=== PATIENT | male | born 1950 | race Caucasian/White ===

== ENCOUNTER 2023-03-23 08:18 | Inpatient (IN) ==
--- NOTE | 2023-03-14 12:58 | Anesthesiology Consultation ---
Date of Service March 14, 2023 Assessment & Plan (1) Encounter for pre-operative examination: - check BSG am DOS. - awaiting surgeon ordered medical clearance. 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 Chart Review Chart Review: Pending: Refer to Additional Notes / Consult section and Patient NOT seen in Pre Admission Testing History Surgery Operation Date: 03/23/23 12:25 Proposed Procedures p L3-L5 Decompression and Fusion with Spinal Cord Monitoring - Praveen Huerta DO Height/Weight Height: 5 ft 8 in Weight: 107.955 kg Allergies Allergy/AdvReac Type Severity Reaction Status Date / Time No Known Allergies Allergy Verified 03/14/23 12:28 Medications Home Medications Medication Instructions Recorded Confirmed Last Taken amlodipine 5 mg tablet 5 mg PO QAM 03/14/23 03/14/23 Unknown glimepiride 2 mg tablet 2 mg PO BID 03/14/23 03/14/23 Unknown hydrocodone 5 mg-acetaminophen 325 1 tab PO Q6H PRN Pain 03/14/23 03/14/23 Unknown mg tablet losartan 100 mg tablet 100 mg PO BID 03/14/23 03/14/23 Unknown metformin 1,000 mg tablet 1,000 mg PO QAM 03/14/23 03/14/23 Unknown rosuvastatin 5 mg tablet 5 mg PO HS 03/14/23 03/14/23 Unknown semaglutide 3 mg tablet (Rybelsus) 3 mg PO QAM 03/14/23 03/14/23 Unknown tramadol 50 mg tablet 50 mg PO BID PRN Pain 03/14/23 03/14/23 Unknown Past Medical History Medical History (Updated 03/14/23 @ 12:56 by Leslye Falcon PA-C) Back pain Diabetes NIDDM History of COVID-19 03/2022 no hosp; resolved HTN (hypertension) Hyperlipidemia OBED (obstructive sleep apnea) noncompliant w/ device Past Family History Family History Other No family history of adverse response to anesthesia Past Surgical History Surgical History History of knee replacement procedure of right knee Hx of colonoscopy Hx of umbilical hernia repair Social History Smoking Status: Former smoker Do You Dip or Chew Tobacco: No Smoking End Date: quit > 40 yrs ago Hx Alcohol Use: Yes (1 beer a day) Alcohol type: beer alcohol intake frequency: 0-2 drinks per day Hx Substance Use: No substance use type: does not use Testing Electrocardiogram Date: 03/07/23 NSR, rate 81 bpm Chest X-Ray Date: 03/07/23 No acute chest disease
[~2023-03-23 08:18] MED LIST: ACETAMINOPHEN 500 MG TAB PO SCH; CeleBREX 200 MG CAP PO SCH; GABAPENTIN 300 MG CAP PO SCH; LR 15ML/HR IV SCH; LR 60ML/HR IV SCH; ceFAZolin 2000MG 2,000 MG/15 ML SYR IV SCH
[2023-03-23] MEDS ORDERED: LIDOCAINE 2% 2 ML VIAL/AMP(20MG/ML) INFIL ONE (08:31)
[2023-03-23] MEDS ORDERED: PROPOFOL IV EMULSION 10 MG/ML 20 ML VIAL IV ONE ×4 (08:31→09:28)
[2023-03-23] MEDS ORDERED: MIDAZOLAM HCL 1 MG/ML 2ML VIAL ONE (08:31)
[2023-03-23] MEDS ORDERED: ROCURONIUM BROMIDE 10 MG/ML 5 ML VIAL IV ONE (08:31)
[2023-03-23] MEDS ORDERED: ONDANSETRON INJ 2 MG/ML 2 ML VIAL ONE (08:31)
[2023-03-23] MEDS ORDERED: fentaNYL citrate PF 100 MCG/2 ML VIAL ONE ×2 (08:31→10:51)
[2023-03-23] MEDS ORDERED: DEXAMETHASONE SOD INJ 4 MG/ML VIAL ONE (08:31)
[2023-03-23] MEDS ORDERED: ATROPINE SULFATE 0.1 MG/ML 10ML SYR IV PRN (09:36)
[2023-03-23] MEDS ORDERED: ePHEDrine sulfate 50 MG/ML AMP IV PRN (09:36)
[2023-03-23] MEDS ORDERED: ePHEDrine sulfate 50 MG/5 ML SYR ONE (09:36)
[2023-03-23] MEDS ORDERED: ONDANSETRON INJ 2 MG/ML 2 ML VIAL IV PRN ×2 (09:36→15:22)
--- NOTE | 2023-03-23 09:55 | History & Physical Bridge Note ---
Date of Service March 23, 2023 History & Physical Bridge Note I have examined the patient, reviewed the History & Physical and in the interval since the performance of the History & Physical I have noted the following changes of clinical significance: no changes noted
--- NOTE | 2023-03-23 09:56 | History & Physical Report ---
Date of Service March 23, 2023 Assessment & Plan (1) Neurogenic claudication due to lumbar spinal stenosis: Plan: L3 L5 decompression and fusion History of Present Illness Chief Complaint: Back and bilateral leg pain Primary Care Provider: Praveen Madrigal DO This is a 72-year-old male presents with chronic persistent back and bilateral leg pain after failing course of nonoperative care is here for surgical invention. Allergies Allergy/AdvReac Type Severity Reaction Status Date / Time No Known Allergies Allergy Verified 03/23/23 09:00 Home Medications Medication Instructions Recorded Confirmed Type amlodipine 5 mg tablet 5 mg PO QAM 03/14/23 03/23/23 History glimepiride 2 mg tablet 2 mg PO BID 03/14/23 03/23/23 History hydrocodone 5 mg-acetaminophen 325 1 tab PO Q6H PRN Pain 03/14/23 03/23/23 History mg tablet losartan 100 mg tablet 100 mg PO BID 03/14/23 03/23/23 History metformin 1,000 mg tablet 1,000 mg PO QAM 03/14/23 03/23/23 History rosuvastatin 5 mg tablet 5 mg PO HS 03/14/23 03/23/23 History semaglutide 3 mg tablet (Rybelsus) 3 mg PO QAM 03/14/23 03/23/23 History tramadol 50 mg tablet 50 mg PO BID PRN Pain 03/14/23 03/23/23 History Past Med/Surg History Medical History (Updated 03/23/23 @ 09:55 by Praveen Huerta DO) History of COVID-19 03/2022 no hosp; resolved Back pain Diabetes NIDDM HTN (hypertension) Hyperlipidemia OBED (obstructive sleep apnea) noncompliant w/ device Surgical History Hx of umbilical hernia repair Hx of colonoscopy History of knee replacement procedure of right knee Family History Other No family history of adverse response to anesthesia Social History Smoking Status: Former smoker Tobacco Type: Cigarettes Smoking End Date: quit > 40 yrs ago; Second Hand Exposure: No; Do You Dip or Chew Tobacco: No; Tobacco Cessation Education Requested by Patient: No Hx Alcohol Use: Yes (1 beer a day) Alcohol type: beer Hx Substance Use: No Preferred Language: [place]er Communication Ability: Effective Tour Driver Required: No Beliefs That Will Affect Care: None Current Living Situation: Spouse Other Information That Helps Us Care for You: No Feels Safe at Home: Yes Safety Concerns: Feels Safe At This Time Assistive Devices: None Physical Exam Physical Exam: Patient is alert and oriented Heart regular rhythm Lungs clear Results & Data Results & Data Vital Signs (Past 12 Hours) Vital Signs Temp Pulse Resp BP Pulse Ox O2 Del Method 03/23/23 08:56 36.7 C 79 20 138/83 96 Room Air
[2023-03-23] MEDS ORDERED: ceFAZolin 330 MG/ML 1 GM VIAL ONE (10:16)
[2023-03-23] MEDS ORDERED: BUPIVACAINE/EPINEPHRINE 0.25% 1:200,000 30 ML VIAL ONE (10:16)
[2023-03-23] MEDS ORDERED: FLOSEAL HEMOSTATIC MATRIX 10ML TOP ONE (11:23)
[2023-03-23] MEDS ORDERED: HYDROmorphone INJ 2 MG/ML SYR/VIAL ONE (11:25)
[2023-03-23] MEDS ORDERED: SUGAMMADEX SODIUM 200 MG/2 ML VIAL IV ONE (12:22)
--- NOTE | 2023-03-23 12:43 | Operative Report ---
Post Operative Report Pre & Post Diagnosis Operation Date: 03/23/23 10:05 Pre-Op Diagnosis: Spinal Stenosis, Lumbar Region with Neurogenic Claudication Post-Op Diagnosis: Spinal Stenosis, Lumbar Region with Neurogenic Claudication I identified the patient and participated in the time-out.: Yes Procedure Operation Date: 03/23/23 10:05 Actual Procedures #1 lumbar decompression bilaterally facetectomies and foraminotomies L2-L3, L3- L4 and L4-5. #2 posterior spinal fusion L3-L5. #3 posterior instrumentation L3-L5. #4 interbody fusion L3-L4 L4-5 and #5 placement of 11 x 26 mm Spira cage at L3-L4 and 12 x 26 mm prior cage at L4-L5. 6 placement locally harvested morselized autograft posterior gutters. #7 placement I factor in the interbody space and infuse collagen sponge, mass graft in the posterior lateral gutters. Surgeon Praveen Huerta, Inventory Associate Evan Berrios Estimated Blood Loss 350 Findings See Below Specimens None Indications This is a 72-year-old male who presents above-mentioned diagnosis of failed course of nonoperative care is here for surgical invention. Description of Procedure Patient met with preoperatively Case discussed all questions addressed with the plan patient was taken back to operative suite underwent and patient placed in a prone position inject table top of the Jordy frame. All bony promises well- padded eyes inspected to ensure no external pressure placed upon the. This point lumbar spine was prepped and draped in a sterile fashion. Sharp dissection with the assistance of Bovie cautery was performed down to and exposing the lamina and transverse processes of L3 L4-5 bilaterally. From caudal cephalad fashion complete laminectomy of L4 L3 and L2 was performed including bilateral medial facetectomies and foraminotomies addressing severe spinal stenosis. Pedicle screws were then placed at L3 L4-5 bilaterally with assistance of fluoroscopy and appropriate size bryan placed. By way of a trans foraminal approach on the left complete discectomy of L4-L5 was performed endplates guarded to subcortical bleeding bone a 12 x 26 mm Spira cage with I factor tapped in position. Then proceeded to L3-L4 and again by way of a transforaminal approach on the left complete discectomy performed endplates guarded to subcortical bleeding bone and 11 x 26 mm Spira cage with I factor tapped in position. The rods and locked in final position bilaterally. The transverse processes of L3 L4-5 burred to subcortical bone. Infuse collagen sponge combined master graft locally harvested morselized autograft placed in the posterior gutters. 15 round SANDY drain inserted. The incision was then closed with 1 Vicryl to fascia 2-0 Vicryl subcutaneously and 4 Monocryl for final skin closure. Steri-Strips sterile dressings placed. Patient waken taken to PACU stable condition. Please note spinal cord monitoring was utilized at the procedure no changes noted. Lastly Evan Berrios was present throughout the entire surgeon while the patient positioning complex portion of the surgery and final skin closure. I attest to the content of the Intraoperative Record and any orders documented therein. Any exceptions are noted below.
[2023-03-23] MEDS: fentaNYL citrate PF 100 MCG/2 ML VIAL IV PRN ×2 (13:16→13:21)
[2023-03-23] MEDS: HYDROmorphone INJ 1 MG/ML SYRINGE IV PRN ×4 (13:35→13:50)
--- NOTE | 2023-03-23 14:03 | Anesthesiology Progress Note ---
Date of Service March 23, 2023 Anesthesia Post Procedure Vital Signs Vital Signs: Temp Pulse Pulse Resp BP BP Pulse Ox 03/23/23 14:00 97.7 F 96 H 15 130/82 97 03/23/23 13:50 96 H 16 147/81 H 95 03/23/23 13:40 96 H 12 162/71 H 95 03/23/23 13:30 96 H 16 159/86 H 95 03/23/23 13:20 100 H 22 164/116 H 97 03/23/23 13:10 95 H 16 154/94 H 97 03/23/23 13:00 97.7 F 91 H 12 185/109 H 95 03/23/23 08:56 98.1 F 79 20 138/83 96 O2 Del Method O2 Flow Rate 03/23/23 14:00 Oxymask 4 03/23/23 13:50 Oxymask 4 03/23/23 13:40 Oxymask 6 03/23/23 13:30 Oxymask 6 03/23/23 13:20 Oxymask 6 03/23/23 13:10 Oxymask 6 03/23/23 13:00 Oxymask 8 03/23/23 08:56 Room Air Pain Intensity Bilateral Lower Back: Pain Intensity: 5 Transfer of Care Handoff Completed per policy Notes Mental Status: alert / awake / arousable and participated in evaluation Patient Amnestic to Procedure: Yes Nausea / Vomiting: adequately controlled Pain: adequately controlled Airway Patency, RR, SpO2: stable & adequate BP & HR: stable & adequate Hydration State: stable & adequate Anesthetic Complications: no major complications apparent and Pt Satisfied with anesthetic care
--- NOTE | 2023-03-23 15:06 | Fluoroscopy Report ---
FL lumbar spine 2-3V CLINICAL HISTORY: L3-L5 DECOMRESSION AND FUSION COMPARISON STUDY: None FLUOROSCOPY TIME: 31.2 seconds FLUOROSCOPY IMAGES: 2 EXPOSURE DOSE: 28.25 mGy FINDINGS: Posterior interbody disc fusion with discectomy at L3-L5. The hardware appears intact. No u nexpected opaque foreign bodies. IMPRESSION: Fluoroscopic assistance as above. ACT 112: Negative or not required by law. Electronically signed by: Mariano Mackenzie M.D. 03/23/2023 3:05 PM
[2023-03-23] MEDS ORDERED: HYDROmorphone INJ 0.5 MG/0.5 ML SYR IV PRN (15:22)
[2023-03-23] MEDS ORDERED: METOCLOPRAMIDE HCL INJ 5 MG/ML 2 ML VIAL IV PRN (15:22)
[2023-03-23] MEDS ORDERED: bisacodyL 10 MG SUPP PR PRN (15:22)
[2023-03-23] MEDS ORDERED: ACETAMINOPHEN 1,000 MG/100 ML VIAL IV PRN (15:22)
[2023-03-23] MEDS ORDERED: HYDROmorphone INJ 1 MG/ML SYRINGE IV PRN (15:22)
[2023-03-23] MEDS ORDERED: MAGNESIUM HYDROXIDE SUSP 30 ML UDC PO PRN (15:22)
[2023-03-23] MEDS ORDERED: LORazepam 0.5 MG in SYRINGE 0.25 ML IV PRN (15:22)
[2023-03-23] MEDS ORDERED: diphenhydrAMINE Capsule 25 MG CAP PO PRN (15:22)
[2023-03-23] MEDS ORDERED: ALUMINUM/MAGNESIUM SUSP 30 ML UDC PO PRN (15:22)
[2023-03-23] MEDS ORDERED: LORazepam 0.5 MG TAB PO PRN (15:22)
[2023-03-23] MEDS ORDERED: ONDANSETRON 4 MG OD TAB PO PRN (15:22)
[2023-03-23] MEDS ORDERED: DO NOT ADMINISTER PNEUMOCOCCAL VACCINE PRN (15:22)
[2023-03-23] MEDS ORDERED: ACETAMINOPHEN 500 MG TAB PO PRN (15:22)
[2023-03-23] MEDS ORDERED: hydrOXYzine HCl 25 MG TAB PO PRN (15:22)
[2023-03-23] MEDS ORDERED: DO NOT ADMINISTER FLU VACCINE PRN (15:22)
[2023-03-23] MEDS ORDERED: SOD PHOSPHATE/SOD BIPHOSPHATE ENEMA 132 ML BTL PR PRN (15:22)
[2023-03-23] MEDS ORDERED: NALOXONE HCL 0.4 MG/1 ML VIAL/CARP IV PRN (15:22)
[2023-03-23] MEDS ORDERED: PROMETHAZINE HCL 12.5 MG in SODIUM CHLORIDE 0.9% 50 ML IV PRN (15:22)
[2023-03-23] MEDS ORDERED: FAMOTIDINE 20 MG TAB PO PRN (15:22)
[2023-03-23] MEDS: SODIUM CHLORIDE 0.9% 1,000 ML IV SCH ×2 (15:55→22:51)
[2023-03-23] MEDS ORDERED: GLUCOSE 10 TAB/TUBE PO PRN (17:16)
[2023-03-23] MEDS ORDERED: GLUCAGON FOR INJ 1 MG VIAL SQ PRN (17:16)
[2023-03-23] MEDS ORDERED: GLUCOSE 40% GEL 15 GM TUBE PO PRN (17:16)
[2023-03-23] MEDS ORDERED: DEXTROSE 50% 50 ML SYRINGE IV PRN (17:16)
[2023-03-23] MEDS ORDERED: CARBOHYDRATES FOR HYPOGLYCEMIA PO PRN (17:16)
--- NOTE | 2023-03-23 17:26 | Hospitalist Consultation ---
Date of Consultation March 23, 2023 Assessment & Plan (1) Neurogenic claudication due to lumbar spinal stenosis: POD#0 L3-L5 decompression and fusion by Dr. Huerta Activity and wound care orders as per ortho Pain control with bowel regimen PT/OT Monitor H/H for acute blood loss anemia and transfuse blood products PRN EBL 350 cc, preop Hgb 13.5 (2) Diabetes: Hgb A1c 7.1 03/2023 Hold home oral agents and utilize NovoLog per protocol while hospitalized (3) HTN (hypertension): Chronic, stable Continue amlodipine and losartan (4) Hyperlipidemia: Chronic, stable Continue statin (5) OBED (obstructive sleep apnea): Intolerant of CPAP DVT PROPHYLAXIS TEDs/SCDs as per spine Ortho Patient seen in collaboration with Dr. Molina. Thank you for this consultation. We will follow the patient with you during their hospital stay. You [facility] via the [facility] in [place] Text. Supervising Physician Co-Signing Physician Notes I have seen and examined the patient and have discussed the case with the provider above. I agree with the assessment and plan as stated. SANDY drain in place, kim catheter in place. Labs/Meds reviewed. He is doing well. Asking for food. Now that he is more awake post operatively, order for diet was put in. DO Jesse History of Present Illness Reason for Consultation: Postop medical management Requesting Physician: Dr. Huerta Attending Physician: Praveen Huerta DO History of Present Illness 72-year-old male with PMH DM type II, HTN, dyslipidemia, OBED intolerant of CPAP, obesity, and other problems listed below who is s/p L3-L5 decompression and fusion today by Dr. Huerta. History obtained from the patient and review of outpatient PCP records. Postoperative, the patient is doing well. He reports his pain is well controlled. He is somewhat lethargic but arouses easily to verbal stimuli. Denies numbness, tingling, weakness to lower extremities. No chest pain or shortness of breath. Denies lightheadedness and dizziness. No abdominal pain or nausea. Kim catheter is in place draining clear yellow urine. Allergies Allergy/AdvReac Type Severity Reaction Status Date / Time No Known Allergies Allergy Verified 03/23/23 09:00 Home Medications Medication Instructions Recorded Confirmed Type amlodipine 5 mg tablet 5 mg PO QAM 03/14/23 03/23/23 History glimepiride 2 mg tablet 2 mg PO BID 03/14/23 03/23/23 History hydrocodone 5 mg-acetaminophen 325 1 tab PO Q6H PRN Pain 03/14/23 03/23/23 History mg tablet losartan 100 mg tablet 100 mg PO BID 03/14/23 03/23/23 History metformin 1,000 mg tablet 1,000 mg PO QAM 03/14/23 03/23/23 History rosuvastatin 5 mg tablet 5 mg PO HS 03/14/23 03/23/23 History semaglutide 3 mg tablet (Rybelsus) 3 mg PO QAM 03/14/23 03/23/23 History tramadol 50 mg tablet 50 mg PO BID PRN Pain 03/14/23 03/23/23 History Patient History Medical History History of COVID-19 03/2022 no hosp; resolved Back pain Diabetes NIDDM HTN (hypertension) Hyperlipidemia OBED (obstructive sleep apnea) noncompliant w/ device Surgical History Hx of umbilical hernia repair Hx of colonoscopy History of knee replacement procedure of right knee Family History Other No family history of adverse response to anesthesia Social History Smoking Status: Never smoker Tobacco Type: Cigarettes Smoking End Date: quit > 40 yrs ago; Second Hand Exposure: No; Do You Dip or Chew Tobacco: No; Tobacco Cessation Education Requested by Patient: No Hx Alcohol Use: Yes Alcohol type: beer Hx Substance Use: No Preferred Language: Sinhala Communication Ability: Effective Pit Shovel Operator Required: No Beliefs That Will Affect Care: None Current Living Situation: Spouse Other Information That Helps Us Care for You: No Feels Safe at Home: Yes Safety Concerns: Feels Safe At This Time Assistive Devices: Oxygen - Continuous Physical Exam Constitutional: WD/WN, vitals as above + obese; no acute distress Eyes: PERRL, conjunctivae normal, anicteric sclerae ENMT: external ear and nose normal, oropharynx normal Respiratory: normal respiratory effort, lungs clear to auscultation Cardiovascular: Rate/Rhythm: regular rate and regular rhythm Vessels: normal peripheral pulses Extremities: no edema Gastrointestinal (Abdomen): normal bowel sounds, soft, nontender, no hepatosplenomegaly Musculoskeletal: no cyanosis or clubbing, extremities motor strength 5/5 S/p back surgery, pedal pushes and pull strong bilaterally, drain in place draining bloody drainage Skin: no rashes, warm and dry Neurologic: PERRL, EOMI, accommodation nl, no face palsy, no dysarthria Psychiatric: Orientation: oriented to person, oriented to place and oriented to time; + not alert (Lethargic but arouses easily to verbal stimuli, falls back to sleep quickly) Results & Data Results & Data Vital Signs (Past 12 Hours) Vital Signs Temp Pulse Pulse Resp BP BP Pulse Ox 03/23/23 17:01 97 H 16 135/76 97 03/23/23 16:12 03/23/23 15:51 36.3 C L 96 H 18 124/69 92 03/23/23 15:15 36.3 C L 98 H 18 111/61 93 03/23/23 14:55 36.5 C 95 H 18 128/90 94 03/23/23 14:45 96 H 22 124/75 95 03/23/23 14:35 95 H 16 114/63 94 03/23/23 14:20 96 H 17 158/88 H 94 03/23/23 14:10 94 H 15 154/76 H 95 03/23/23 14:00 36.5 C 96 H 15 130/82 97 03/23/23 13:50 96 H 16 147/81 H 95 03/23/23 13:40 96 H 12 162/71 H 95 03/23/23 13:30 96 H 16 159/86 H 95 03/23/23 13:20 100 H 22 164/116 H 97 03/23/23 13:10 95 H 16 154/94 H 97 03/23/23 13:00 36.5 C 91 H 12 185/109 H 95 03/23/23 08:56 36.7 C 79 20 138/83 96 O2 Del Method O2 Flow Rate 03/23/23 17:01 Oxymask 2 03/23/23 16:12 Oxymask 3 03/23/23 15:51 Oxymask 3 03/23/23 15:15 Oxymask 3 03/23/23 14:55 Oxymask 3 03/23/23 14:45 Oxymask 3 03/23/23 14:35 Oxymask 3 03/23/23 14:20 Oxymask 3 03/23/23 14:10 Oxymask 3 03/23/23 14:00 Oxymask 4 03/23/23 13:50 Oxymask 4 03/23/23 13:40 Oxymask 6 03/23/23 13:30 Oxymask 6 03/23/23 13:20 Oxymask 6 03/23/23 13:10 Oxymask 6 03/23/23 13:00 Oxymask 8 03/23/23 08:56 Room Air
[2023-03-23] MEDS: ceFAZolin 2000MG 2,000 MG/15 ML SYR IV SCH (18:26)
[2023-03-23] MEDS: ROSUVASTATIN CALCIUM 5 MG TAB PO SCH (19:37)
[2023-03-23] MEDS: LOSARTAN POTASSIUM 50 MG TAB PO SCH (19:38)
[2023-03-23] MEDS: DOCUSATE SODIUM/SENNA 50/8.6MG TAB PO SCH (19:38)
[2023-03-23] MEDS ORDERED: GLIMEPIRIDE 2 MG TAB PO SCH (21:00)
[2023-03-23] MEDS: traMADol HCL 50 MG TABLET PO PRN (21:30)
[2023-03-23] MEDS: INSULIN ASPART PER UNIT CHARGE SC SCH (21:35)
[2023-03-24] MEDS: ceFAZolin 2000MG 2,000 MG/15 ML SYR IV SCH (03:21)
[2023-03-24] MEDS: POLYETHYLENE (MIRALAX) 17 GM PACK PO SCH ×4 (06:28→22:02)
[2023-03-24] MEDS: dexAMETHasone 6 MG in SYRINGE 0 ML IV SCH (08:00)
[2023-03-24] MEDS: amLODIPine BESYLATE 5 MG TAB PO SCH (08:00)
[2023-03-24] MEDS: LOSARTAN POTASSIUM 50 MG TAB PO SCH ×2 (08:01→20:49)
[2023-03-24] MEDS: oxyCODONE HCL IR 5 MG TAB (IMMEDIATE RELEASE) PO PRN ×3 (08:04→22:02)
[2023-03-24 08:23] LABS: Basophils # (auto) 0.01 K/uL (0.00-0.20); Basophils % (auto) 0.1 %; Hematocrit (blood only) 35.4 % (42.0-52.0); Hemoglobin 11.8 g/dl (14.0-18.0); Immature Granulocytes # (auto) 0.07 K/uL (0.01-0.20); Immature Granulocytes % (auto) 0.5 %; Lymphocytes % (auto) 7.3 %; Mean Corpuscular Hemoglobin 29.8 pg (25.0-34.0); Mean Corpuscular Hgb Conc 33.3 g/dL (32.0-36.0); Mean Corpuscular Volume 89.4 fL (80.0-100.0); Mean Platelet Volume 9.8 fL (9.4-12.4); Monocytes # (auto) 0.74 K/uL (0.11-0.59); Monocytes % (auto) 5.4 %; Neutrophils # (auto) 11.91 K/uL (1.40-6.50); Neutrophils % (auto) 86.7 %; Platelet Count 265 K/uL (130-400); RDW Coefficient of Variation 12.5 % (11.5-14.5); RDW Standard Deviation 41.1 fL (36.4-46.3); Red Blood Count 3.96 M/uL (4.70-6.10); White Blood Count 13.73 K/ul (4.8-10.8)
[2023-03-24 08:32] LABS: BUN Creatinine Ratio 20.8 (10-20); Calcium 9.2 mg/dl (8.6-10.3); Est GFR (African American) 66.7 ml/min; Est GFR (Non-African American) 57.6 ml/min; Potassium 4.7 mmol/L (3.5-5.1)
--- NOTE | 2023-03-24 08:58 | Orthopedic Progress Note ---
Date of Service March 24, 2023 Assessment & Plan (1) Neurogenic claudication due to lumbar spinal stenosis: Plan: At this time initiate physical therapy monitor SANDY operatively discharge home Sunday. Admission and Anticipated Discharge Date Admission Date: March 23, 2023 Subjective Patient's back pain is controlled leg pain markedly improved Physical Exam Physical Exam: Patient is in bed at this time peers comfortable. Is constricted testing. Results & Data Vital Signs (Past 12 Hours) Vital Signs Temp Pulse Resp BP Pulse Ox O2 Del Method 03/24/23 07:00 36.6 C 78 18 153/81 H 95 Room Air 03/24/23 02:50 36.9 C 82 20 151/77 H 94 Room Air 03/23/23 22:41 36.8 C 86 20 128/68 95 Room Air Queries Orthopedic Spine Obesity: Yes
[2023-03-24] MEDS: SODIUM CHLORIDE 0.9% 1,000 ML IV SCH ×3 (09:23→18:10)
[2023-03-24] MEDS: INSULIN ASPART PER UNIT CHARGE SC SCH ×4 (09:37→20:51)
--- NOTE | 2023-03-24 11:21 | Hospitalist Progress Note ---
Date of Service March 24, 2023 Assessment & Plan (1) Neurogenic claudication due to lumbar spinal stenosis: Plan: POD#1 L3-L5 decompression and fusion by Dr. Huerta Activity and wound care orders as per ortho Pain control with bowel regimen PT/OT (2) Acute blood loss as cause of postoperative anemia: Plan: Monitor H/H for acute blood loss anemia and transfuse blood products PRN EBL 350 cc, preop Hgb 13.5; post-operative 11.8 Follow CBC in am (3) Diabetes: Plan: Hgb A1c 7.1 03/2023 Hold home oral agents and utilize NovoLog per protocol while hospitalized (4) HTN (hypertension): Plan: Chronic, stable Continue amlodipine 5mg and losartan 100mg BID (5) Hyperlipidemia: Plan: Chronic, stable Continue statin (6) OBED (obstructive sleep apnea): Plan: Intolerant of CPAP DVT PROPHYLAXIS TEDs/SCDs as per spine Ortho Thank you for this consultation. We will follow the patient with you during their hospital stay. You can reach a member of the [facility] Hospitalist Team 04/12 via the [facility] Hospitalist role in [place] Text. Admission and Anticipated Discharge Date Admission Date: March 23, 2023 Results & Data Results & Data Vital Signs (Past 12 Hours) Vital Signs Temp Pulse Resp BP Pulse Ox O2 Del Method 03/24/23 08:30 Room Air 03/24/23 07:00 36.6 C 78 18 153/81 H 95 Room Air 03/24/23 02:50 36.9 C 82 20 151/77 H 94 Room Air Laboratory Results Short CBC 03/24/23 Range/Units 07:30 WBC 13.73 H (4.8-10.8) K/ul Hgb 11.8 L (14.0-18.0) g/dl Hct 35.4 L (42.0-52.0) % Plt Count 265 (130-400) K/uL BMP 03/24/23 07:30 Sodium 137 Potassium 4.7 Chloride 107 Carbon Dioxide 24 BUN 26 H Creatinine 1.25 Glucose 161 H Calcium 9.2 Medications Administered Short CBC 03/24/23 Range/Units 07:30 WBC 13.73 H (4.8-10.8) K/ul Hgb 11.8 L (14.0-18.0) g/dl Hct 35.4 L (42.0-52.0) % Plt Count 265 (130-400) K/uL BMP 03/24/23 07:30 Sodium 137 Potassium 4.7 Chloride 107 Carbon Dioxide 24 BUN 26 H Creatinine 1.25 Glucose 161 H Calcium 9.2
[2023-03-24] MEDS: ROSUVASTATIN CALCIUM 5 MG TAB PO SCH (20:48)
[2023-03-24] MEDS: DOCUSATE SODIUM/SENNA 50/8.6MG TAB PO SCH (20:50)
[2023-03-24] MEDS ORDERED: Nursing to Pharmacy Communication SCH (23:15)
[2023-03-25] MEDS: POLYETHYLENE (MIRALAX) 17 GM PACK PO SCH ×4 (05:39→23:09)
[2023-03-25] MEDS: oxyCODONE HCL IR 5 MG TAB (IMMEDIATE RELEASE) PO PRN ×2 (05:45→23:09)
[2023-03-25 06:59] LABS: Hematocrit (blood only) 35.9 % (42.0-52.0); Mean Corpuscular Hgb Conc 33.4 g/dL (32.0-36.0); Mean Corpuscular Volume 89.8 fL (80.0-100.0); Mean Platelet Volume 9.6 fL (9.4-12.4); Platelet Count 259 K/uL (130-400); RDW Coefficient of Variation 12.4 % (11.5-14.5); RDW Standard Deviation 41.1 fL (36.4-46.3); White Blood Count 13.68 K/ul (4.8-10.8)
--- NOTE | 2023-03-25 08:46 | Orthopedic Progress Note ---
Date of Service March 25, 2023 Assessment & Plan (1) Neurogenic claudication due to lumbar spinal stenosis: Plan: Kirill is postoperative day 2 status post lumbar decompression and fusion L3-5. We will continue with pain control today. DVT prophylaxis is in the form of teds and SCDs. Work on aggressive bowel regimen. Continue physical therapy. Anticipate discharge home tomorrow Admission and Anticipated Discharge Date Admission Date: March 23, 2023 Subjective Kirill is postoperative day 2 status post decompression and fusion L3-5. He has no complaints. Leg pain has resolved. Has modest back pain only today. He is passing flatus but no bowel movement. SANDY drain output last shift was 80 cc. H&H are 12.0 and 35.9 respectively this morning. Yesterday in physical therapy ambling 200 feet Review of Systems Review of Systems: All systems reviewed & are unremarkable except as noted in HPI & below Physical Exam Physical Exam: Alert and oriented sitting on the edge of the bed eating breakfast in no acute distress Lumbar dressing is clean dry and intact with functioning SANDY drain Strength is intact bilateral lower extremity Calf soft nontender bilaterally Results & Data Vital Signs (Past 12 Hours) Vital Signs Temp Pulse Resp BP Pulse Ox O2 Del Method 03/25/23 07:31 36.7 C 67 18 146/82 H 96 Room Air 03/25/23 01:04 Room Air
[2023-03-25] MEDS: amLODIPine BESYLATE 5 MG TAB PO SCH (08:47)
[2023-03-25] MEDS: dexAMETHasone 6 MG in SYRINGE 0 ML IV SCH (08:47)
[2023-03-25] MEDS: LOSARTAN POTASSIUM 50 MG TAB PO SCH ×2 (08:47→20:59)
[2023-03-25] MEDS: INSULIN ASPART PER UNIT CHARGE SC SCH ×4 (08:58→20:58)
--- NOTE | 2023-03-25 10:51 | Hospitalist Progress Note ---
Date of Service March 25, 2023 Assessment & Plan (1) Neurogenic claudication due to lumbar spinal stenosis: Plan: POD#2 L3-L5 decompression and fusion by Dr. Huerta Activity and wound care orders as per ortho Pain control with bowel regimen PT/OT (2) Acute blood loss as cause of postoperative anemia: Plan: Monitor H/H for acute blood loss anemia and transfuse blood products PRN EBL 350 cc, preop Hgb 13.5; post-operative 11.8 Stable, no concerns for acute hemorrhage at this time (3) Diabetes: Plan: Hgb A1c 7.1 03/2023 Hold home oral agents and utilize NovoLog per protocol while hospitalized; resume upon discharge (4) HTN (hypertension): Plan: Chronic, stable Continue amlodipine 5mg and losartan 100mg BID (5) Hyperlipidemia: Plan: Chronic, stable Continue statin (6) OBED (obstructive sleep apnea): Plan: Intolerant of CPAP DVT PROPHYLAXIS TEDs/SCDs as per spine Ortho Thank you for this consultation. We will follow the patient with you during their hospital stay. You can reach a member of the [facility] Hospitalist Team 04/12 via the [facility] Hospitalist role in [place] Text. Admission and Anticipated Discharge Date Admission Date: March 23, 2023 Subjective NAEO Review of Systems Review of Systems: All systems reviewed & are unremarkable except as noted in Subjective Physical Exam Constitutional: WD/WN, vitals as above Respiratory: normal respiratory effort, lungs clear to auscultation Cardiovascular: RRR, no murmur, no edema Results & Data Results & Data Vital Signs (Past 12 Hours) Vital Signs Temp Pulse Resp BP Pulse Ox O2 Del Method 03/25/23 07:31 36.7 C 67 18 146/82 H 96 Room Air 03/25/23 01:04 Room Air Laboratory Results Short CBC 03/25/23 Range/Units 06:29 WBC 13.68 H (4.8-10.8) K/ul Hgb 12.0 L (14.0-18.0) g/dl Hct 35.9 L (42.0-52.0) % Plt Count 259 (130-400) K/uL Medications Administered Home Medications Medication Instructions Recorded Confirmed Last Taken amlodipine 5 mg tablet 5 mg PO QAM 03/14/23 03/23/23 03/23/23 06:00 glimepiride 2 mg tablet 2 mg PO BID 03/14/23 03/23/23 03/22/23 08:00 hydrocodone 5 mg-acetaminophen 325 1 tab PO Q6H PRN Pain 03/14/23 03/23/23 03/22/23 23:55 mg tablet losartan 100 mg tablet 100 mg PO BID 03/14/23 03/23/23 03/22/23 08:00 metformin 1,000 mg tablet 1,000 mg PO QAM 03/14/23 03/23/23 03/21/23 08:00 rosuvastatin 5 mg tablet 5 mg PO HS 03/14/23 03/23/23 03/21/23 22:00 semaglutide 3 mg tablet (Rybelsus) 3 mg PO QAM 03/14/23 03/23/23 03/22/23 08:00 tramadol 50 mg tablet 50 mg PO BID PRN Pain 03/14/23 03/23/23 Unknown oxycodone 5 mg tablet 5 mg PO Q6H PRN pain #30 tabs 03/24/23 Unknown tramadol 50 mg tablet 50 mg PO Q6H PRN pain, moderate 03/24/23 Unknown #30 tabs Active Medications Generic Name Dose Route Start Last Admin Trade Name Freq PRN Reason Stop Dose Admin Acetaminophen 1,000 mg 03/23/23 15:22 03/24/23 12:51 Acetaminophen 500 Mg Tab PO 04/22/23 15:21 1,000 mg Q8H PRN Administration MILD Pain Scale 1,2,3 & Pre PT Amlodipine Besylate 5 mg 03/24/23 09:00 03/25/23 08:47 Amlodipine Besylate 5 Mg Tab PO 04/23/23 08:59 5 mg QAM WANDA Administration Diphenhydramine HCl 25 mg 03/23/23 15:22 03/24/23 00:54 Diphenhydramine Capsule 25 Mg Cap PO 04/22/23 15:21 25 mg Q6H PRN Administration Allergic Rhinitis/Insomnia Hydromorphone HCl 0.5 mg 03/23/23 15:22 03/25/23 10:03 Hydromorphone Inj 0.5 Mg/0.5 Ml Syr IV 04/06/23 15:21 0.5 mg Q3H PRN Administration MODERATE Pain (Scale 4,5,6) & Pre PT Dexamethasone 6 mg/ Syringe 1.5 mls @ 1 mls/min 03/24/23 09:00 03/25/23 08:47 IV 03/26/23 09:02 1 mls/min DAILY WANDA Administration Insulin Aspart 0 units 03/23/23 21:00 03/25/23 08:58 Insulin Aspart Per Unit Charge SC 04/22/23 20:59 8 units ACHS WANDA Administration Losartan Potassium 100 mg 03/23/23 21:00 03/25/23 08:47 Losartan Potassium 50 Mg Tab PO 04/22/23 20:59 100 mg BID WANDA Administration Miscellaneous 1 each 03/23/23 16:00 03/25/23 09:24 Semaglutide [Rybelsus] ~ Order Awaiting Action N/A 04/22/23 15:59 Not Given QS WANDA Oxycodone HCl 5 - 10 mg 03/23/23 15:22 03/25/23 05:45 Oxycodone Hcl Ir 5 Mg Tab (Immediate Release) PO 04/06/23 15:21 5 mg Q4H PRN Administration Pain & Pre PT Polyethylene Glycol 17 gm 03/24/23 06:00 03/25/23 05:39 Polyethylene (Miralax) 17 Gm Pack PO 04/23/23 05:59 17 gm Q6 WANDA Administration Rosuvastatin Calcium 5 mg 03/23/23 21:00 03/24/23 20:48 Rosuvastatin Calcium 5 Mg Tab PO 04/22/23 20:59 5 mg HS WANDA Administration Senna/Docusate Sodium 2 tab 03/23/23 21:00 03/24/23 20:50 Docusate Sodium/Senna 50/8.6mg Tab PO 04/22/23 20:59 2 tab HS WANDA Administration Tramadol HCl 50 - 100 mg 03/23/23 15:22 03/23/23 21:30 Tramadol Hcl 50 Mg Tablet PO 04/22/23 15:21 50 mg Q4H PRN Administration Moderate-Severe pain & Pre PT
[2023-03-25] MEDS: DOCUSATE SODIUM/SENNA 50/8.6MG TAB PO SCH (20:59)
[2023-03-25] MEDS: ROSUVASTATIN CALCIUM 5 MG TAB PO SCH (20:59)
[2023-03-26] MEDS: traMADol HCL 50 MG TABLET PO PRN (00:08)
[2023-03-26] MEDS: POLYETHYLENE (MIRALAX) 17 GM PACK PO SCH ×3 (05:53→13:10)
[2023-03-26] MEDS: LOSARTAN POTASSIUM 50 MG TAB PO SCH (08:08)
[2023-03-26] MEDS: amLODIPine BESYLATE 5 MG TAB PO SCH (08:08)
[2023-03-26] MEDS: dexAMETHasone 6 MG in SYRINGE 0 ML IV SCH (08:08)
[2023-03-26] MEDS: INSULIN ASPART PER UNIT CHARGE SC SCH ×2 (09:01→13:09)
--- NOTE | 2023-03-26 09:43 | Hospitalist Progress Note ---
Date of Service March 26, 2023 Assessment & Plan (1) Neurogenic claudication due to lumbar spinal stenosis: Plan: POD#2 L3-L5 decompression and fusion by Dr. Huerta Activity and wound care orders as per ortho Pain control with bowel regimen PT/OT (2) Acute blood loss as cause of postoperative anemia: Plan: Monitor H/H for acute blood loss anemia and transfuse blood products PRN EBL 350 cc, preop Hgb 13.5; post-operative 11.8 Stable, no concerns for acute hemorrhage at this time (3) Diabetes: Plan: Hgb A1c 7.1 03/2023 Hold home oral agents and utilize NovoLog per protocol while hospitalized; resume upon discharge (4) HTN (hypertension): Plan: Chronic, stable Continue amlodipine 5mg and losartan 100mg BID (5) Hyperlipidemia: Plan: Chronic, stable Continue statin (6) OBED (obstructive sleep apnea): Plan: Intolerant of CPAP DVT PROPHYLAXIS TEDs/SCDs as per spine Ortho Thank you for this consultation. We will follow the patient with you during their hospital stay. You can reach a member of the [facility] Hospitalist Team 04/12 via the [facility] Hospitalist role in [place] Text. Admission and Anticipated Discharge Date Admission Date: March 23, 2023 Subjective NAEO Review of Systems Review of Systems: All systems reviewed & are unremarkable except as noted in Subjective Physical Exam Constitutional: WD/WN, vitals as above Respiratory: normal respiratory effort, lungs clear to auscultation Cardiovascular: RRR, no murmur, no edema Results & Data Results & Data Vital Signs (Past 12 Hours) Vital Signs Temp Pulse Resp BP Pulse Ox O2 Del Method 03/26/23 07:37 36.7 C 70 18 136/77 95 Room Air Medications Administered Home Medications Medication Instructions Recorded Confirmed Last Taken amlodipine 5 mg tablet 5 mg PO QAM 03/14/23 03/23/23 03/23/23 06:00 glimepiride 2 mg tablet 2 mg PO BID 03/14/23 03/23/23 03/22/23 08:00 hydrocodone 5 mg-acetaminophen 325 1 tab PO Q6H PRN Pain 03/14/23 03/23/23 03/22/23 23:55 mg tablet losartan 100 mg tablet 100 mg PO BID 03/14/23 03/23/23 03/22/23 08:00 metformin 1,000 mg tablet 1,000 mg PO QAM 03/14/23 03/23/23 03/21/23 08:00 rosuvastatin 5 mg tablet 5 mg PO HS 03/14/23 03/23/23 03/21/23 22:00 semaglutide 3 mg tablet (Rybelsus) 3 mg PO QAM 03/14/23 03/23/23 03/22/23 08:00 tramadol 50 mg tablet 50 mg PO BID PRN Pain 03/14/23 03/23/23 Unknown oxycodone 5 mg tablet 5 mg PO Q6H PRN pain #30 tabs 03/24/23 Unknown tramadol 50 mg tablet 50 mg PO Q6H PRN pain, moderate 03/24/23 Unknown #30 tabs Active Medications Generic Name Dose Route Start Last Admin Trade Name Freq PRN Reason Stop Dose Admin Acetaminophen 1,000 mg 03/23/23 15:22 03/24/23 12:51 Acetaminophen 500 Mg Tab PO 04/22/23 15:21 1,000 mg Q8H PRN Administration MILD Pain Scale 1,2,3 & Pre PT Amlodipine Besylate 5 mg 03/24/23 09:00 03/26/23 08:08 Amlodipine Besylate 5 Mg Tab PO 04/23/23 08:59 5 mg QAM WANDA Administration Diphenhydramine HCl 25 mg 03/23/23 15:22 03/24/23 00:54 Diphenhydramine Capsule 25 Mg Cap PO 04/22/23 15:21 25 mg Q6H PRN Administration Allergic Rhinitis/Insomnia Hydromorphone HCl 0.5 mg 03/23/23 15:22 03/25/23 10:03 Hydromorphone Inj 0.5 Mg/0.5 Ml Syr IV 04/06/23 15:21 0.5 mg Q3H PRN Administration MODERATE Pain (Scale 4,5,6) & Pre PT Insulin Aspart 0 units 03/23/23 21:00 03/26/23 09:01 Insulin Aspart Per Unit Charge SC 04/22/23 20:59 7 units ACHS WANDA Administration Losartan Potassium 100 mg 03/23/23 21:00 03/26/23 08:08 Losartan Potassium 50 Mg Tab PO 04/22/23 20:59 100 mg BID WANDA Administration Miscellaneous 1 each 03/23/23 16:00 03/26/23 08:09 Semaglutide [Rybelsus] ~ Order Awaiting Action N/A 04/22/23 15:59 Not Given QS WANDA Oxycodone HCl 5 - 10 mg 03/23/23 15:22 03/25/23 23:09 Oxycodone Hcl Ir 5 Mg Tab (Immediate Release) PO 04/06/23 15:21 5 mg Q4H PRN Administration Pain & Pre PT Polyethylene Glycol 17 gm 03/24/23 06:00 03/26/23 05:55 Polyethylene (Miralax) 17 Gm Pack PO 04/23/23 05:59 17 gm Q6 WANDA Administration Rosuvastatin Calcium 5 mg 03/23/23 21:00 03/25/23 20:59 Rosuvastatin Calcium 5 Mg Tab PO 04/22/23 20:59 5 mg HS WANDA Administration Senna/Docusate Sodium 2 tab 03/23/23 21:00 03/25/23 20:59 Docusate Sodium/Senna 50/8.6mg Tab PO 04/22/23 20:59 2 tab HS WANDA Administration Tramadol HCl 50 - 100 mg 03/23/23 15:22 03/26/23 00:08 Tramadol Hcl 50 Mg Tablet PO 04/22/23 15:21 100 mg Q4H PRN Administration Moderate-Severe pain & Pre PT
--- NOTE | 2023-03-26 09:53 | Discharge Summary ---
Date of Service March 26, 2023 Admission HPI Per Admitting Provider This is a 72-year-old male presents with chronic persistent back and bilateral leg pain after failing course of nonoperative care is here for surgical invention. Principal Diagnosis Lumbar spinal stenosis with neurogenic claudication Discharge Data Allergies Allergy/AdvReac Type Severity Reaction Status Date / Time No Known Allergies Allergy Verified 03/23/23 09:00 Consultations 03/23/23 15:22 Consult Hospitalist Routine Procedures Performed Operation Date: 03/23/23 10:05 Actual Procedures p L3-L5 Decompression and Fusion, with Spinal Cord Monitoring(Not Applicable) - Praveen Huerta DO Ordered Studies 03/23/23 10:05 [place] lumbar spine 2-3V Routine Hospital Course (1) Neurogenic claudication due to lumbar spinal stenosis: Patient with lumbar decompression fusion tolerated as well as taken orthopedic for postoperative. Postop he progressed appropriately. SANDY drain decreasing probably. Extra strength testing. Pain well controlled. Simply discharged home. Discharge orders instructions from the chart for further review. Total Time Total Time Spent Total Time Spent (In Minutes): 20 minutes Discharge Plan Discharge Items Patient Disposition: Home - Self-Care Reason For Visit: Spinal Stenosis, Lumbar Region with Neurogenic Cla Discharge Diagnosis: Lumbar spinal stenosis with neurogenic claudication Activity: As commented below Non-emergency contact: Primary Care Provider Call non-emergency contact if: you have any medication questions Follow-up/Referrals: Praveen Madrigal DO [Primary Care Provider] - Diet: Regular Addtl Attending Provider Instructions: ACTIVITY RECOMMENDATIONS: SELF CARE INSTRUCTIONS AFTER THORACIC/LUMBAR FUSIONS 1. You may walk to your tolerance. It is good exercise for your legs and back. Expect some back and intermittent leg aches and pains. 2. You may perform "counter-top" level activities (make a sandwich, batsheva with a project, etc.). 3. No bending or lifting of more than 10 pounds or back twisting of any nature (roll like a log when turning in bed). 4. You may ride in a car for 20-30 minutes at a time. No driving until after your first visit with your doctor. 5. Frequent changes of position and restricting sitting to 30 minutes at a time will help limit the amount of back spasms and stiffness you may experience. 6. You may discontinue the use of ambulatory aids (cane, crutches, etc.) once your strength and confidence allow. 7. You may wood type finisher the shower and let water strike your incision when you arrive home at least once daily. Do not take a tub bath, sit in a hot tub or go into a swimming pool until after your first recheck in the office. SPECIAL CARE INSTRUCTIONS: VERY IMPORTANT TO READ AND REVIEW A. Your surgical incision has been closed with a cosmetic suture under the skin that will dissolve in about 6 weeks. In 14 days, you can use a pair of clean scissors and cut the suture that is left outside of the skin at the ends of your incision. 1. The small skin tapes can be removed 7 days after surgery if they have not fallen off by that point. 2. You may keep the wound open to air as much as possible to promote healing after post-op day number 5 unless told otherwise by your doctor. 3. If you think the wound looks like it is becoming infected (redness or worsening drainage) and/or you are experiencing fever, chill or worsening back pain and muscle spasms, contact the office so that we may evaluate you as soon as possible. B. Complications are uncommon, but please contact us if you have any signs or symptoms of: 1. wound infection (fever higher than 102.5 degrees F, redness, separation of wound, drainage, or increasing pain from the incision) 2. blood clots in legs (pain, swelling, redness and warmth in legs) 3. urinary tract infection (fever higher than 102.5 degrees F, burning upon urination or increased frequency of urination) 4. nerve problems (inability to walk on your toes or heels, numbness, loss of bowel or bladder control) 5. any other symptoms that concern you C. Please call the office at if you have any concerns or questions about your operation or recovery. D. No smoking! Smoking drastically decreases the chance of a solid fusion. E. Do not take any anti-inflammatory medications (Indocin, Advil, Motrin, Aspirin, Naprosyn, etc.) as these may inhibit the chance of a solid fusion. Tylenol is okay to take for pain. MANAGING PAIN AFTER SPINAL SURGERY 1. Narcotic medication is intended for short-term use and will be provided for surgical pain. Surgical pain usually lasts for a period of 4-6 weeks. Narcotic medication includes Percocet, Vicodin, Darvocet, Tylenol #3 or Lortab. 2. Longer-term pain is more appropriately treated with non-narcotic medication such as Tylenol ES. 3. Muscle spasm is not appropriately treated with narcotics. Muscle relaxers such as Soma, Flexeril or Skelaxin can be used along with Tylenol ES. 4. Remember that we all live with some "aches and pains". This is not unusual or uncommon after an injury or as we get older. a. Back pain is expected and may include muscle spasms for 4 to 6 weeks after surgery. The pain should gradually improve. If the pain worsens for no apparent reason, please contact the office. b. Intermittent leg pain may also be experienced and should not be concerned about unless it worsens for no apparent reason. If so, please contact the office. 5. We will provide appropriate medication within the normal guidelines of their prescribed use. We will also be very cautious and aware of potential abuse and extended duration of patients' medication needs. a. Pain medications are for your comfort and to assist with sleep and rest so that the tissue can heal. They are not provided in order to return to normal activity and should not be used through the day. To do so or worsening pain at night can result from ongoing tissue damage and development of tolerance to the prescribed medicine. 6. Please allow 2-3 days to process refills. Prescriptions will not be mailed but must be picked up at the office. FOLLOW UP VISIT: Keep your scheduled follow-up appointment. Any questions, please call the office at . Pending Studies at Discharge: No Stand-Alone Forms: My [facility], Smoking Cessation Medications and OR Order Prescriptions: New tramadol 50 mg tablet 50 mg PO Q6H PRN (Reason: pain, moderate) Qty: 30 0RF oxycodone 5 mg tablet 5 mg PO Q6H PRN (Reason: pain) Qty: 30 0RF Continued hydrocodone-acetaminophen 5-325 mg Tablet 1 tab PO Q6H PRN (Reason: Pain) amlodipine 5 mg Tablet 5 mg PO QAM tramadol 50 mg Tablet 50 mg PO BID PRN (Reason: Pain) glimepiride 2 mg Tablet 2 mg PO BID metformin 1,000 mg Tablet 1,000 mg PO QAM losartan 100 mg Tablet 100 mg PO BID rosuvastatin 5 mg Tablet 5 mg PO HS Rybelsus 3 mg Tablet 3 mg PO QAM Discharge Orders: Discharge Order (Routine); Ordered 03/26/23 Ordered By: Praveen Huerta Admission Data Admit Date/Time: 03/23/23 12:47 Attending Provider: Praveen Huerta Admit Provider: Praveen Huerta Primary Care Provider: Praveen Madrigal Other Providers: Malgorzata Molina
[2023-03-26] MEDS: oxyCODONE HCL IR 5 MG TAB (IMMEDIATE RELEASE) PO PRN (12:04)
== END 2023-03-26 14:31 | disposition home or self-care (01) | DRG 454 ==
LOC: ASU 08:18 → 3N 12:47